=== PATIENT | male | born 2000 | race Caucasian/White ===

== ENCOUNTER 2021-01-23 14:11 | Day surgery (SDC) | payer OTHER ==
[2021-01-23] MEDS ORDERED: HYDROmorphone 1 MG/ML CARPUJECT IVP STA (14:35)
[2021-01-23] MEDS ORDERED: ONDANSETRON 4 MG/2 ML VIAL IVP STA (14:35)
[2021-01-23] MEDS ORDERED: SODIUM CHLORIDE 0.9% 1,000 ML IV STA (14:35)
[2021-01-23 14:45] LABS: BASOPHILS # (AUTO) 0.1 10^3/uL (0.0-0.1); BASOPHILS % (AUTO) 0.8 %; EOSINOPHILS # (AUTO) 0.7 10^3/uL (0.0-0.7); EOSINOPHILS % (AUTO) 7.9 %; HCT - HEMATOCRIT 41.3 % (42.0-52.0); HGB - HEMOGLOBIN 14.7 g/dL (14.0-18.0); LYMPHOCYTES # (AUTO) 2.1 10^3/uL (1.5-3.5); LYMPHOCYTES % (AUTO) 24.3 %; MEAN CORPUSCULAR HEMOGLOBIN 29.8 pg (27.0-31.0); MEAN CORPUSCULAR HGB CONC 35.6 g/dL (32.0-36.0); MEAN CORPUSCULAR VOLUME 83.6 fL (80.0-94.0); MEAN PLATELET VOLUME 9.5 fL (7.4-11.4); MONOCYTES # (AUTO) 0.7 10^3/uL (0.0-1.0); MONOCYTES % (AUTO) 8.3 %; NEUTROPHILS % (AUTO) 58.6 %; PLT - PLATELET COUNT 346 10^3/uL (130-450); RED BLOOD COUNT 4.94 10^6/uL (4.70-6.10); RED CELL DISTRIBUTION WIDTH 11.9 % (12.0-15.0); WHITE BLOOD COUNT 8.5 x10^3/uL (4.8-10.8)
--- NOTE | 2021-01-23 14:50 | ED Physician Documentation ---
History of Present Illness - Stated complaint Stated Complaint: ABD PX/CP - Chief complaint Chief Complaint: Abd Pain - Additonal information Additional information: 21-year-old male presents emergency department for evaluation of periumbilical pain that radiated to the right lower quadrant. Symptoms began yesterday afternoon. Positive nausea no vomiting. No fevers. No dysuria urgency or frequency. No diarrhea. No pertinent past surgical history. Review of Systems Constitutional: reports: Chills, Myalgias. denies: Fever Eyes: reports: Reviewed and negative Ears: reports: Reviewed and negative Nose: reports: Reviewed and negative Throat: reports: Reviewed and negative Cardiac: reports: Reviewed and negative Respiratory: reports: Reviewed and negative GI: reports: Abdominal Pain, Nausea. denies: Vomiting, Constipation, Diarrhea, Hematemesis : reports: Reviewed and negative Skin: reports: Reviewed and negative PD PAST MEDICAL HISTORY - Allergies Allergies/Adverse Reactions: Allergies Allergy/AdvReac Type Severity Reaction Status Date / Time No Known Drug Allergies Allergy Verified 01/23/21 14:28 PD ED PE EXPANDED - General General: Alert, In Pain - Cardiac Cardiac: Regular Rate, Radial strong equal. No: Murmur Present - Respiratory Respiratory: Clear to ausultation rachel. No: Distress, Labored - Abdomen Abdomen: Normal Bowel sounds, RLQ (Tenderness with guarding and rebound right lower quadrant. Percussion tenderness present. Equivocal McBurney's.) Results - Vitals Vitals: Vital Signs - 24 hr 01/23/21 14:23 Temperature 36.5 C Heart Rate 103 H Respiratory 15 Rate Blood Pressure 145/84 H O2 Saturation 99 Oxygen O2 Source Room air - Labs Labs: Laboratory Tests 01/23/21 01/23/21 01/23/21 14:40 14:40 16:17 WBC 8.5 RBC 4.94 Hgb 14.7 Hct 41.3 L MCV 83.6 MCH 29.8 MCHC 35.6 RDW 11.9 L Plt Count 346 MPV 9.5 Neut # (Auto) 5.0 Lymph # (Auto) 2.1 [place] # (Auto) 0.7 Eos # (Auto) 0.7 Baso # (Auto) 0.1 Absolute Nucleated RBC 0.00 Nucleated RBC % 0.0 Sodium 135 Potassium 3.9 Chloride 100 L Carbon Dioxide 27 Anion Gap 8.0 BUN 15 Creatinine 0.9 Estimated GFR (MDRD) 105 Glucose 110 H Calcium 9.5 Total Bilirubin 0.6 AST 20 ALT 29 Alkaline Phosphatase 91 Total Protein 7.9 Albumin 4.6 Globulin 3.3 Albumin/Globulin Ratio 1.4 Lipase 23 Urine Color YELLOW Urine Clarity CLEAR Urine pH 7.[address] <=1.005 Urine Protein NEGATIVE Urine Glucose (UA) NEGATIVE Urine Ketones NEGATIVE Urine Occult Blood NEGATIVE Urine Nitrite NEGATIVE Urine Bilirubin NEGATIVE Urine Urobilinogen 0.2 (NORMAL) Ur Leukocyte Esterase NEGATIVE Ur Microscopic Review NOT INDICATED Urine Culture Comments NOT INDICATED - Rads (name of study) CT abd Radiology: Final report received (Acute appendicitis without abscess or rupture.) PD MEDICAL DECISION MAKING - ED course Complexity details: reviewed results, re-evaluated patient, d/w patient ED course: 18-year-old male presents emergency department for 2 days of right lower quadrant abdominal pain. History and exam highly suspicious for acute appendicitis though his screening labs are essentially unremarkable. CT did show acute appendicitis without acute fracture or abscess. I discussed The case with Dr. Oliveira who will take the patient to the OR emergently. 3 g of Unasyn has been ordered. Plan and findings discussed with patient and he is in agreement. Patient has remained clinically stable while here in the emergency department. Further care to be dictated by the surgical team. Departure - Departure Disposition: ED Transfer to [facility]
[2021-01-23] MEDS ORDERED: IOVERSOL 320 100 ML VIAL IVP ONE ×2 (14:55→16:12)
[2021-01-23 14:59] LABS: ALBUMIN 4.6 g/dL (3.2-5.5); ALBUMIN/GLOBULIN RATIO 1.4 (1.0-2.2); BILIRUBIN,TOTAL 0.6 mg/dL (0.2-1.0); CALCIUM 9.5 mg/dL (8.5-10.3); CREATININE 0.9 mg/dL (0.6-1.2); POTASSIUM 3.9 mmol/L (3.5-5.0); TOTAL PROTEIN 7.9 g/dL (6.7-8.2)
[2021-01-23 16:29] LABS: BILIRUBIN,URINE NEGATIVE (NEGATIVE); GLUCOSE, URINE (UA) NEGATIVE (NEGATIVE); KETONES,URINE (UA) NEGATIVE (NEGATIVE); LEUKOCYTE ESTERASE, URINE NEGATIVE (NEGATIVE); NITRITE,URINE NEGATIVE (NEGATIVE); OCCULT BLOOD,URINE NEGATIVE (NEGATIVE); PROTEIN,URINE NEGATIVE (NEGATIVE); UROBILINOGEN,URINE 0.2 (NORMAL) E.U./dL (NORMAL)
[2021-01-23 16:30] LABS: CLARITY,URINE CLEAR (CLEAR)
[2021-01-23] MEDS ORDERED: AMPICILLIN/SULBACTAM 3 GM in SODIUM CHLORIDE 0.9% MINIBAG 100 ML IV STA (16:40)
--- NOTE | 2021-01-23 16:42 | CT Report ---
PROCEDURE: Abdomen/Pelvis W INDICATIONS: RLQ pain CONTRAST: IV CONTRAST: Optiray 320 ml: 100 PO CONTRAST: *NO PO CONTRAST TECHNIQUE: After the administration of intravenous contrast, 5 mm thick sections acquired from the diaphragms to the symphysis. 5 mm thick coronal and sagittal reformats were acquired. For radiation dose reducti on, the following was used: automated exposure control, adjustment of mA and/or kV according to lucia ent size. COMPARISON: None. FINDINGS: Image quality: Excellent. ABDOMEN: Lung bases: Lung bases are clear. Heart size is normal. Solid organs: Liver and spleen are normal in size and enhancement. Gallbladder is normal Biliary s ystem is non dilated. Pancreas enhances normally. No adrenal nodules. Kidneys demonstrate normal s ize and enhancement, without hydronephrosis. Peritoneum and bowel: Bowel loops demonstrate normal wall thickness and caliber. No free fluid or a ir. The appendix is enlarged 1.6 cm. Mild inflammatory changes and trace free fluid noted adjacent to the appendix. No appendicolith or evidence of appendiceal rupture. Nodes and vessels: No retroperitoneal or mesenteric adenopathy by size criteria. Aorta and inferior vena cava are normal in size. Miscellaneous: No ventral hernias. PELVIS: Genitourinary: Bladder wall thickness is normal. Miscellaneous: No inguinal hernias or adenopathy. Bones: No suspicious bony lesions. No vertebral body compression fractures. IMPRESSION: Acute appendicitis. No evidence of appendiceal rupture or periappendiceal abscess. Findings discussed with Karla Peñaloza, nurse practitioner on 01/23/2021 at 1639 hours. Reviewed by: Amelie Canada MD, PhD on 01/23/2021 4:40 PM PDT Approved by: Amelie Canada MD, PhD on 01/23/2021 4:40 PM PDT Station ID: [id number]
--- NOTE | 2021-01-23 17:22 | HISTORY & PHYSICAL EXAMINATION ---
HPI - Admitted From Admitted from: ED - History Obtained From History obtained from: Patient Exam limitations: No limitations - History of Present Illness Pain/Problem Location Description: Right lower quadrant Severity at the worst: reports: Moderate Pain Quality: reports: Dull, Aching Context-Pain started w/: reports: Rest Timing: reports: Gradual onset Duration: reports: Days: (1) Improved with: reports: Nothing Worsened by: reports: Movement, Palpation Associated symptoms: reports: Nausea. denies: Shortness of air, Diaphoresis, Vomiting HPI Comment/Other: Pleasant 21-year-old [employer] presents with 24 hours of abdominal pain that began in the periumbilical region and localized to the right lower quadrant he has had associated nausea but no vomiting no prior history of similar pain no diarrhea and no fever prior to presenting to the emergency department. 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: positive: None : positive: None HEENT: positive: None Psych: positive: None Musculoskeletal: positive: None Derm: positive: None MRSA Hx?: No Social & Family Hx - Living Situation Living Arrangement: Other ([place] [employer] [place] - Social History Does the pt smoke?: No Does the pt drink ETOH?: Yes Meds/Allgy - Allergies Allergies/Adverse Reactions: Allergies Allergy/AdvReac Type Severity Reaction Status Date / Time No Known Drug Allergies Allergy Verified 01/23/21 14:28 Review of Systems - Constitutional Constitutional: denies: Fever, Chills - Cardiovascular Cariovascular: denies: Lightheadedness - Gastrointestinal Gastrointestinal: reports: Abdominal pain, Nausea. denies: Black stools, Bloody stools, Vomiting - Genitourinary Genitourinary: denies: Dysuria, Frequency - All Other Systems All Other Systems: reports: Reviewed and negative Exam - Vital Signs Reviewed Vital Signs: Yes Vital Signs: Vital Signs x48h Temp Pulse Resp BP Pulse Ox 01/23/21 14:23 36.5 C 103 H 15 145/84 H 99 - Physical Exam General Appearance: positive: No acute distress, Alert Eyes Bilateral: positive: Normal inspection, PERRL, EOMI ENT: positive: ENT inspection nml, Pharynx nml, No signs of dehydration Neck: positive: Nml inspection, Thyroid nml, No JVD, Trachea midline Respiratory: positive: Chest non-tender, No respiratory distress, Breath sounds nml Cardiovascular: positive: Regular rate & rhythm Peripheral Pulses: positive: 2+ Abdomen: positive: Nml bowel sounds, Tenderness, Guarding, Rebound Back: positive: Nml inspection Skin: positive: Color nml Extremities: positive: Non-tender Neurologic/Psychiatric: positive: Oriented x3 Results - Lab Results Fish Bones: 01/23/21 14:40 01/23/21 14:40 Other Lab Results: Lab Results x24hrs 01/23/21 01/23/21 01/23/21 Range/Units 16:17 14:40 14:40 WBC 8.5 (4.8-10.8) x10^3/uL RBC 4.94 (4.70-6.10) 10^6/uL Hgb 14.7 (14.0-18.0) g/dL Hct 41.3 L (42.0-52.0) % MCV 83.6 (80.0-94.0) fL MCH 29.8 (27.0-31.0) pg MCHC 35.6 (32.0-36.0) g/dL RDW 11.9 L (12.0-15.0) % Plt Count 346 (130-450) 10^3/uL MPV 9.5 (7.4-11.4) fL Neut # (Auto) 5.0 (1.5-6.6) 10^3/uL Lymph # (Auto) 2.1 (1.5-3.5) 10^3/uL [place] # (Auto) 0.7 (0.0-1.0) 10^3/uL Eos # (Auto) 0.7 (0.0-0.7) 10^3/uL Baso # (Auto) 0.1 (0.0-0.1) 10^3/uL Absolute Nucleated RBC 0.00 x10^3/uL Nucleated RBC % 0.0 /100WBC Sodium 135 (135-145) mmol/L Potassium 3.9 (3.5-5.0) mmol/L Chloride 100 L (101-111) mmol/L Carbon Dioxide 27 (21-32) mmol/L Anion Gap 8.0 (6-13) BUN 15 (6-20) mg/dL Creatinine 0.9 (0.6-1.2) mg/dL Estimated GFR (MDRD) 105 (>89) Glucose 110 H (70-100) mg/dL Calcium 9.5 (8.5-10.3) mg/dL Total Bilirubin 0.6 (0.2-1.0) mg/dL AST 20 (10-42) IU/L ALT 29 (10-60) IU/L Alkaline Phosphatase 91 (42-121) IU/L Total Protein 7.9 (6.7-8.2) g/dL Albumin 4.6 (3.2-5.5) g/dL Globulin 3.3 (2.1-4.2) g/dL Albumin/Globulin Ratio 1.4 (1.0-2.2) Lipase 23 (22-51) U/L Urine Color YELLOW Urine Clarity CLEAR (CLEAR) Urine pH 7.0 (5.0-7.5) PH Ur Specific [place] <=1.005 (1.002-1.030) Urine Protein NEGATIVE (NEGATIVE) mg/dL Urine Glucose (UA) NEGATIVE (NEGATIVE) mg/dL Urine Ketones NEGATIVE (NEGATIVE) mg/dL Urine Occult Blood NEGATIVE (NEGATIVE) Urine Nitrite NEGATIVE (NEGATIVE) Urine Bilirubin NEGATIVE (NEGATIVE) Urine Urobilinogen 0.2 (NORMAL) (NORMAL) E.U./dL Ur Leukocyte Esterase NEGATIVE (NEGATIVE) Ur Microscopic Review NOT INDICATED Urine Culture Comments NOT INDICATED - Diagnostic Imaging Results Diagnostic Imaging Results: positive: Prelim report reviewed Diagnostic Imaging Results Comments: CT scan with evidence of acute appendicitis without rupture. No other abnormalities appreciated - EKG Results EKG Interpreted Independently: No Impression/Plan - Problem List Problem List: Acute appendicitis in the setting of a healthy 21-year-old gentleman who was in the [place] he is already received 3 g of Unasyn in the emergency room I recommended that we proceed to the operating room for laparoscopic appendectomy I will keep him overnight as he does live in the [facility] and we want to be sure his pain is well controlled and nausea has resolved.We discussed the risks and benefits of the operation and the patient is expressed both verbal and written consent to proceed
--- NOTE | 2021-01-23 17:25 | ANESTHESIA ---
Pre-Anesthesia VS, & Labs - Diagnosis appendicitis - Procedure lap appy Vital Signs: Temp Pulse Resp BP Pulse Ox 36.5 C 103 H 15 145/84 H 99 01/23/21 14:23 01/23/21 14:23 01/23/21 14:23 01/23/21 14:23 01/23/21 14:23 Height: 5 ft 9 in Weight (kg): 94 kg Body Mass Index: 30.6 BMI Classification: Obese - NPO Last Food Intake: 1240--ate a burger - Lab Results Current Lab Results: Laboratory Tests 01/23/21 14:40: Sodium 135, Potassium 3.9, Chloride 100 L, Carbon Dioxide 27, Anion Gap 8.0, BUN 15, Creatinine 0.9, Estimated GFR (MDRD) 105, Glucose 110 H, Calcium 9.5, Total Bilirubin 0.6, AST 20, ALT 29, Alkaline Phosphatase 91, Total Protein 7.9, Albumin 4.6, Globulin 3.3, Albumin/Globulin Ratio 1.4, Lipase 23 01/23/21 14:40: WBC 8.5, RBC 4.94, Hgb 14.7, Hct 41.3 L, MCV 83.6, MCH 29.8, MCHC 35.6, RDW 11.9 L, Plt Count 346, MPV 9.5, Neut # (Auto) 5.0, Lymph # (Auto) 2.1, [place] # (Auto) 0.7, Eos # (Auto) 0.7, Baso # (Auto) 0.1, Absolute Nucleated RBC 0.00, Nucleated RBC % 0.0 Lab results reviewed: Yes Fish Bones: 01/23/21 14:40 01/23/21 14:40 Home Medications and Allergies Ibuprofen PRN Allergies/Adverse Reactions: Allergies Allergy/AdvReac Type Severity Reaction Status Date / Time No Known Drug Allergies Allergy Verified 01/23/21 14:28 Anes History & Medical History - Anesthetic History Family history of Anesthesia Complications: Denies Family history of Malignant Hyperthermia: Denies - Medical History Cardiovascular: reports: None Pulmonary: reports: None Gastrointestinal: reports: None Urinary: reports: None Neuro: reports: None Musculoskeletal: reports: None Endocrine/Autoimmune: reports: None Blood Disorders: reports: None Skin: reports: None Smoking Status: Current every day smoker (vapes) Psychosocial: reports: Alcohol (1-2x/ month) History of Cancer?: Yes Exam General: Alert, Oriented x3, Cooperative, No acute distress Dental: Other (chipped front, otherwise normal) Mouth Openin Fingerbreadth Neck Mobility: Normal Mallampati classification: I Thyromental Distance: 4-6 cm Mental/Cognitive Status: Alert/Oriented X3, Normal for patient Plan Anesthesia Type: General (with RSI) Consent for Procedure(s) Verified and Reviewed: Yes Code Status: Attempt Resuscitation ASA classification: 2-Mild systemic disease Is this case an emergency?: Yes
[2021-01-23] MEDS ORDERED: SUCCINYLCHOLINE 200 MG/10 ML VIAL ONE (17:35)
[2021-01-23] MEDS ORDERED: LIDOCAINE-MPF 2% 5 ML VIAL ONE (17:36)
[2021-01-23] MEDS ORDERED: PROPOFOL 200 MG/20 ML VIAL IVP ONE (17:36)
[2021-01-23] MEDS ORDERED: ROCURONIUM 50 MG/5 ML VIAL ONE (17:36)
[2021-01-23] MEDS ORDERED: fentaNYL 100 MCG/2 ML VIAL ONE (17:39)
[2021-01-23] MEDS ORDERED: MIDAZOLAM 2 MG/2 ML VIAL ONE (17:39)
[2021-01-23] MEDS ORDERED: LIDOCAINE 2%-EPI 1:100000 20 ML MDV ONE (18:12)
[2021-01-23] MEDS ORDERED: BUPIVACAINE 0.5% PF 30 ML VIAL ONE (18:12)
[2021-01-23] MEDS ORDERED: ONDANSETRON 4 MG/2 ML VIAL ONE (18:15)
[2021-01-23] MEDS ORDERED: DEXAMETHASONE 4 MG/ML VIAL ONE (18:15)
[2021-01-23] MEDS ORDERED: LIDOCAINE 2%-EPI 1:100000 20 ML MDV SUBQ ONE (18:18)
[2021-01-23] MEDS ORDERED: BUPIVACAINE 0.5% PF 30 ML VIAL INFIL ONE (18:19)
[2021-01-23] MEDS ORDERED: SUGAMMADEX 200 MG/2 ML VIAL IVP ONE (18:43)
[2021-01-23] MEDS ORDERED: KETOROLAC 30 MG/ML VIAL ONE (18:47)
--- NOTE | 2021-01-23 18:49 | OPERATIVE REPORT ---
Operative Report - General Procedure Date: 01/23/21 Planned Procedure: Laparoscopy with appendectomy and indicated procedures Pre-Op Diagnosis: Acute appendicitis without evidence of perforation Procedure Performed: Laparoscopic appendectomy Post Op Diagnosis: Acute nonperforated appendicitis - Procedure Note Primary Surgeon: Tee Anesthesia Provider: AGUSTIN Rodgers Anesthesia Technique: General ET tube, Local Pathology: Appendix in formalin to pathology Estimated Blood Loss (mL): 10 Indications: Acute appendicitis suspected on physical exam and confirmed with CT Findings: Acute appendicitis without evidence of perforation Complications: None apparent - Other Other Information/Narrative: After obtaining informed consent, the patient is brought to the operating room and placed in the supine position on the operating table. Following successful induction of general endotracheal anesthesia, appropriate padding of all bony prominences, and placement of appropriate monitors, the abdomen was prepped and draped in the standard surgical fashion. A timeout was held per scope protocol. All elements of the surgical safety checklist were followed before, during, and after the procedure. Following infiltration with local anesthetic to create a field block, an incision was created inferior to the umbilicus and carried down through the skin and subcutaneous tissue to reveal the fascia below. 2-0 Vicryl retention sutures were placed on either side of the midline and the abdomen was entered under direct vision using a 15 blade scalpel. A 10 mm blunt Fisher balloon trocar was placed in the abdominal cavity and it was insufflated to 15 mmHg pressure. The patient was placed in Trendelenburg position with the left side rotated toward the floor. The camera was placed in the abdominal cavity and we immediately visualized the cecum in the right lower quadrant. It was rotated medially to reveal a somewhat dilated and turgid appendix. The appendix was grasped and elevated revealing its attachment to the cecum. A window was created in the mesoappendix at this location. A laparoscopic stapling device was used to ligate the appendix and liberated from its attachment to the cecum. An additional load of the device were used to divide its mesentery.The appendix was placed in an Endo Catch bag and removed via the umbilical port with a camera in the epigastric position. The camera was replaced in the operative site examined. It was irrigated with warm saline solution and aspirated free of all fluid and particulate matter. The table was flattened and the abdomen evaluated once again. The trochars were removed under direct vision and abdomen was desufflated. The umbilical incision was closed with interrupted Vicryl suture and Monocryl stitches were placed in the skin. All sponge, needles, and instrument counts were correct at the conclusion of the case. The patient was allowed to wake from anesthesia without difficulty and taken to the postanesthesia care unit in good condition.
[2021-01-23] MEDS ORDERED: SODIUM CHLORIDE FLUSH 0.9% 10 ML SYRINGE IVP PRN (18:50)
[2021-01-23] MEDS ORDERED: ACETAMINOPHEN 325 MG TABLET PO PRN (18:52)
[2021-01-23] MEDS ORDERED: IBUPROFEN 600 MG TABLET PO PRN (18:52)
[2021-01-23] MEDS ORDERED: ONDANSETRON 4 MG/2 ML VIAL IVP PRN ×2 (18:52→18:59)
[2021-01-23] MEDS ORDERED: fentaNYL 100 MCG/2 ML VIAL IVP PRN (18:59)
[2021-01-23] MEDS ORDERED: ATROPINE ABBOJECT 1 MG/10 ML SYRINGE IVP PRN (18:59)
[2021-01-23] MEDS ORDERED: MORPHINE 2 MG/ML CARPUJECT IVP PRN (18:59)
[2021-01-23] MEDS ORDERED: LACTATED RINGERS 1,000 ML IV ONE (18:59)
[2021-01-23] MEDS ORDERED: NALOXONE 0.4 MG/ML VIAL IVP PRN (18:59)
[2021-01-23] MEDS ORDERED: HYDROmorphone 0.5 MG/0.5 ML SYRINGE IVP PRN (18:59)
[2021-01-23] MEDS ORDERED: LACTATED RINGERS 1,000 ML IV SCH (19:00)
--- NOTE | 2021-01-23 19:12 | ANESTHESIA POST OP EVALUATION ---
Anesthesia Post Eval - Post Anesthesia Eval Vitals: Last Vital Signs Temp 37 C 01/23/21 18:55 Pulse 79 01/23/21 19:05 Resp 18 01/23/21 19:05 BP 137/77 H 01/23/21 19:05 Pulse Ox 94 01/23/21 19:05 CV Function Including HR & BP: Stable Pain Control: Satisfactory Nausea & Vomiting: Negative Mental Status: Patient Participates Respiratory Status: Airway Patent Hydration Status: Satisfactory Anesthesia Complications: None
[2021-01-23] MEDS ORDERED: HYDROmorphone 0.5 MG/0.5 ML SYRINGE ONE (19:20)
[2021-01-23] MEDS ORDERED: ACETAMINOPHEN 1,000 MG/100 ML 100 ML IV ONE ×2 (19:20→19:21)
[2021-01-23] MEDS: oxyCODONE 5 MG TABLET PO PRN (19:53)
[2021-01-23] MEDS: SODIUM CHLORIDE 0.9% 1,000 ML IV SCH (20:02)
[2021-01-23] MEDS: HYDROmorphone 1 MG/ML CARPUJECT IVP PRN (21:25)
[2021-01-24] MEDS: HYDROmorphone 1 MG/ML CARPUJECT IVP PRN (01:22)
[2021-01-24] MEDS: SODIUM CHLORIDE FLUSH 0.9% 10 ML SYRINGE IVP SCH ×2 (01:23→08:20)
[2021-01-24] MEDS: oxyCODONE 5 MG TABLET PO PRN ×2 (03:00→06:51)
[2021-01-24] MEDS: SODIUM CHLORIDE 0.9% 1,000 ML IV SCH (05:19)
[2021-01-24] MEDS ORDERED: PANTOPRAZOLE 40 MG TABLET PO SCH (07:00)
[2021-01-24 08:13] VITALS: BP 142/77
[2021-01-24] MEDS ORDERED: ENOXAPARIN 40 MG/0.4 ML SYRINGE SUBQ SCH (09:00)
[2021-01-24] MEDS ORDERED: IBUPROFEN 600 MG TABLET PO PRN (09:13)
[2021-01-24] MEDS ORDERED: oxyCODONE 5 MG TABLET PO PRN (09:13)
[2021-01-24] MEDS ORDERED: ONDANSETRON 4 MG/2 ML VIAL IVP PRN (09:13)
[2021-01-24] MEDS ORDERED: ACETAMINOPHEN 325 MG TABLET PO PRN (09:13)
== END 2021-01-24 09:45 | disposition home or self-care (01) ==
LOC: ED 14:11 → SDS 16:59 → MS2 19:31 → SDS 01-24 09:45
PROVIDERS: ATTEND Surgery
PROC: 0DTJ4ZZ Resection of Appendix, Percutaneous Endoscopic Approach (ICD-10-PCS; principal; 2021-01-23 17:00)
DX: K35.80 Unspecified acute appendicitis (principal); E66.9 Obesity, unspecified; Z68.30 Body mass index [BMI] 30.0-30.9, adult; F17.290 Nicotine dependence, other tobacco product, uncomplicated
CPT/HCPCS: 36415; 44970; 74177; 80053; 81003; 83690; 85025; 96374; 96375; 99283; 99285; A9270; J0131; J0330; J1170; J1650; J7120; Q9967; 81001; 87086; 88304

== ENCOUNTER 2021-03-08 08:10 | Emergency (ER) | payer OTHER ==
[2021-03-08 08:32] VITALS: BP 123/80
--- NOTE | 2021-03-08 09:03 | ED Physician Documentation ---
History of Present Illness - Stated complaint Stated Complaint: ABD PX - Chief complaint Chief Complaint: Abd Pain - History obtained from History obtained from: Patient - History of Present Illness Timing: Today - Additonal information Additional information: 21-year-old male who had his appendix out at the beginning of January has had a issue with infection in the umbilical incision. He has had an abscess has been drained he has packing in place now and he is on antibiotic. He had the packing placed about 4 days ago and today was in the shower he had an occlusive Band-Aid over the top of it the water got underneath the Band-Aid and he experienced some pain in his abdomen at the site of the abscess. He was instructed by the nurse come to the emergency department for evaluation. He has been seeing a nurse at Dr. Oliveira's office with the packing. Review of Systems Constitutional: denies: Fever Cardiac: denies: Chest pain / pressure Respiratory: denies: Dyspnea, Cough GI: reports: Abdominal Pain. denies: Nausea, Vomiting, Diarrhea : denies: Dysuria, Frequency PD PAST MEDICAL HISTORY - Past Medical History Past Medical History: Yes Cardiovascular: None Respiratory: None Neuro: Head injury Endocrine/Autoimmune: None GI: None CAD ADMINISTRATOR: None : None HEENT: None Psych: None Musculoskeletal: None Derm: None - Past Surgical History Past Surgical History: Yes General: Appendectomy - Present Medications Home Medications: Ambulatory Orders Medication Instructions Recorded Confirmed Cephalexin [Keflex] 750 mg PO TID 03/08/21 03/08/21 - Allergies Allergies/Adverse Reactions: Allergies Allergy/AdvReac Type Severity Reaction Status Date / Time No Known Drug Allergies Allergy Verified 03/08/21 08:15 - Social History Does the pt smoke?: No Smoking Status: Never smoker Does the pt drink ETOH?: Yes Does the pt have substance abuse?: No - Immunizations Immunizations are current?: Yes PD ED PE NORMAL - Vitals Vital signs reviewed: Yes (hypertensvie ) - General General: Alert and oriented X 3, No acute distress, Well developed/nourished - HEENT HEENT: Atraumatic, PERRL, EOMI - Respiratory Respiratory: No respiratory distress - Abdomen Abdomen: Soft, Non tender, Non distended, No organomegaly, Other (There is packing from the umbilical incision and this is removed with a foul oder. The area does not appear inflamed at all. Mild tenderness minimal drainage on the packing. ) - Derm Derm: Normal color, Warm and dry, No rash - Extremities Extremities: No deformity, No edema - Neuro Neuro: vaccine manager 2-12 intact, No motor deficit, No sensory deficit, Normal speech Eye Opening: Spontaneous Motor: Obeys Commands Verbal: Oriented GCS Score: 15 - Psych Psych: Normal mood, Normal affect Results - Vitals Vitals: Vital Signs - 24 hr 03/08/21 03/08/21 08:17 08:31 Temperature 36.4 C L Heart Rate 86 62 Respiratory 16 16 Rate Blood Pressure 126/94 H 123/80 O2 Saturation 98 97 Oxygen O2 Source Room air PD MEDICAL DECISION MAKING - ED course Complexity details: considered differential, d/w patient ED course: 21-year-old male with an umbilical incision abscess has experienced a mild pain is packing is removed and replaced without incident the packing was foul-smellin g there is no significant drainage from the area no significant inflammation around the area. Dressing was replaced and the patient has follow-up in 2 days time Departure - Departure Disposition: 01 Home, Self Care Clinical Impression: Incisional abscess Condition: Stable Instructions: ED Abscess IandD Follow-Up: EVE BARROW DO [Primary Care Provider] - Veronique Oliveira MD [Provider Admit Priv/Credential] - Comments: Today it appears the abscess to your incision is improving and we have changed the packing. Have the packing removed in your surgeon's office on follow-up.
== END 2021-03-08 10:01 | disposition home or self-care (01) ==
LOC: ED 08:10
DX: T81.49XA Infection following a procedure, other surgical site, initial encounter (principal); L02.216 Cutaneous abscess of umbilicus; Y83.8 Other surgical procedures as the cause of abnormal reaction of the patient, or of later complication, without mention of misadventure at the time of the procedure
CPT/HCPCS: 99282

== ENCOUNTER 2021-09-09 07:48 | Outpatient (CLI) | payer OTHER ==
--- NOTE | 2021-09-09 08:50 | MRI Report ---
PROCEDURE: Brain W/O INDICATIONS: SYNCOPE TECHNIQUE: Noncontrast axial T1 spin echo, axial T2 fast spin echo, sagittal and axial FLAIR, coronal T2 fast sp in echo, axial gradient echo, axial diffusion and ADC through the brain. COMPARISON: None. FINDINGS: Image quality: Diagnostic. CSF Spaces: Basal cisterns are patent. No extra-axial fluid collections. Ventricles are normal in size and shape. Brain: No intracranial hemorrhage, mass, or mass effect. Gutierrez/white matter interface is preserved. Brainstem appears normal. Diffusion-weighted images demonstrate no acute infarcts. There is mild non specific periventricular T2 hyperintensity along the posterior horn of the right lateral ventricle. N ormal intravascular flow voids are present. Skull and face: Calvarium has normal marrow signal. Orbits appear normal. Sinuses: Mild mucosal thickening demonstrated within the ethmoid sinuses, right greater than left. Th ere is a sinus retention cyst or mucosal polyp partially visualized within the inferior right maxilla ry sinus measuring up to 1.5 cm. Mastoid air cells are clear. IMPRESSION: 1. No evidence of infarct, hemorrhage, or mass effect. 2. Small linear region of periventricular white matter T2 hyperintensity along the right lateral vent ricle is nonspecific and of uncertain clinical significance. The differential is broad and includes s equelae of infectious or inflammatory processes such as vasculitis or demyelinating disease among oth er etiologies. Reviewed by: Librado Noe MD on 09/09/2021 8:48 AM PST Approved by: Librado Noe MD on 09/09/2021 8:48 AM PST Station ID: [id number]
== END 2021-09-09 07:49 | disposition home or self-care (01) ==
LOC: DI 07:48
DX: R55 Syncope and collapse (principal)

== ENCOUNTER 2021-09-26 17:05 | Emergency (ER) | payer OTHER ==
[2021-09-26 17:15] VITALS: BP 144/86
--- NOTE | 2021-09-26 17:43 | ED Physician Documentation ---
PD HPI OPHTHO - Stated complaint Stated Complaint: LT EYE BLURRY/ARTIS SPOT - Chief complaint Chief Complaint: Heent - History obtained from History obtained from: Patient - Additional information Additional information: 21yo male comes in with left eye pain and blurry vision x 1 week. "Burning" pain. Constant. Eyes feel dry and sensitive. Seen at [facility], given eye drops without relief. Given rx today for augmentin and eythromycin, not yest started. Not a contact lens wearer. Had a stye a few weeks before this starting in same eye. Review of Systems Constitutional: denies: Fever, Chills Eyes: reports: Loss of vision, Decreased vision, Photophobia, Discharge, Irritation Ears: denies: Loss of hearing, Ear pain PD PAST MEDICAL HISTORY - Past Medical History Cardiovascular: None Respiratory: None Neuro: Head injury Endocrine/Autoimmune: None GI: None HEALTH SCREENER: None : None HEENT: None Psych: None Musculoskeletal: None Derm: None - Past Surgical History Past Surgical History: Yes General: Appendectomy - Present Medications Home Medications: Ambulatory Orders Medication Instructions Recorded Confirmed cephALEXin [Keflex] 750 mg PO TID 03/08/21 03/08/21 levoFLOXacin 0.5% OPHTH DROPS 1 drops OPTH Q2H #5 ml 09/26/21 [Quixin Ophth Drops] - Allergies Allergies/Adverse Reactions: Allergies Allergy/AdvReac Type Severity Reaction Status Date / Time No Known Drug Allergies Allergy Verified 09/26/21 17:14 - Social History Does the pt smoke?: No Smoking Status: Never smoker Does the pt drink ETOH?: Yes Does the pt have substance abuse?: No - Immunizations Immunizations are current?: Yes PD ED PE NORMAL - Vitals Vital signs reviewed: Yes - General General: Alert and oriented X 3, No acute distress - HEENT HEENT: PERRL, EOMI, Other (On the left cornea there is a small lesion with fluorescein uptake. Really too small to characterize per se. Nurses visual acuity is 20/30 in that eye.) - Neuro Neuro: Alert and oriented X 3, Normal speech - Psych Psych: Normal mood, Normal affect Results - Vitals Vitals: Vital Signs - 24 hr 09/26/21 17:07 Temperature 36.4 C L Heart Rate 78 Respiratory 16 Rate Blood Pressure 144/86 H O2 Saturation 97 Oxygen O2 Source Room air PD MEDICAL DECISION MAKING - ED course ED course: 21-year-old gentleman with a corneal lesion. It is quite small but does not seem to be responding to what ever he was given last week. He was given more prescriptions yesterday but has not started them as he wanted a second opinion. There is no ophthalmology on-call but it does not look like an acute emergency i.e. it does not look like an ulcer or dendritic per se. He was started on topical fluoroquinolone and advised to fill the oral antibiotics he was already given. Departure - Departure Disposition: Home, Self Care Clinical Impression: Benign lesion of left cornea Condition: Good Record reviewed to determine appropriate education?: Yes Instructions: ED Eye Injury Corneal Abrasion Follow-Up: Elijah Mckeon MD [Provider Admit Priv/Credential] - Prescriptions: levoFLOXacin 0.5% OPHTH DROPS [Quixin Ophth Drops] 1 drops OPTH Q2H #5 ml Comments: Not clear what the lesion represents. I would go ahead and start the oral antibiotics that the [facility] gave you, I am prescribing a stronger topical antibiotic. Return for new or worsening symptoms. Imperative to see the eye doctor soon as possible, I would just go to the [facility] Wednesday morning. I am also giving you the phone number for the local civilian car mechanic. Discharge Date/Time: 09/26/21 18:24
== END 2021-09-26 18:24 | disposition home or self-care (01) ==
LOC: ED 17:05
DX: D31.1 Benign neoplasm of cornea (principal)
CPT/HCPCS: 99282; 99283

== ENCOUNTER 2021-10-02 12:08 | Outpatient (CLI) | payer OTHER | END 2021-10-02 12:09 | disposition home or self-care (01) | LOC: LAB.R 12:08 | PROVIDERS: ATTEND Optometrist | DX: H16.002 Unspecified corneal ulcer, left eye (principal) | CPT/HCPCS: 87070 ==

== ENCOUNTER 2021-11-09 14:31 | Emergency (ER) | payer OTHER ==
[2021-11-09 14:40] VITALS: BP 157/99
--- NOTE | 2021-11-09 15:05 | XRAY Report ---
PROCEDURE: Finger(s) RT INDICATIONS: Trauma TECHNIQUE: AP hand, 2 views of the fifth finger(s) acquired. COMPARISON: None FINDINGS: Bones: There is a moderately displaced distal fifth metacarpal fracture, with mild impaction. No additional fractures or dislocations. No suspicious bony lesions. Soft tissues: No suspicious soft tissue calcifications. IMPRESSION: Distal fifth metacarpal fracture. Reviewed by: Bassam Lemos MD on 11/09/2021 2:04 PM FELISHA Approved by: Bassam Lemos MD on 11/09/2021 2:04 PM FELISHA Station ID: [id number]
--- NOTE | 2021-11-09 15:06 | ED Physician Documentation ---
PD HPI UPPER EXT INJURY - Stated complaint Stated Complaint: RIGHT HAND INJURY - Chief complaint Chief Complaint: Ext Problem - History obtained from History obtained from: Patient - History of Present Illness Location: Right, Hand Type of injury: Fall (he states he fell and right hand struck ground, knuckles contacting ground. Pain at 5th MC area.) Timing - onset: Today Timing - details: Abrupt onset, Still present Improved by: No: Rest Worsened by: Moving, Palpating Associated symptoms: Weakness (pain with moving little finger.), Swelling. No: Numbness Similar symptoms before: Has not had sx before Review of Systems Skin: denies: Abrasion (s), Laceration (s) Musculoskeletal: reports: Extremity pain (right ulnar side hand.) Neurologic: denies: Focal weakness, Numbness PD PAST MEDICAL HISTORY - Past Medical History Cardiovascular: None Respiratory: None Neuro: Head injury Endocrine/Autoimmune: None GI: None NURSE PLASTICS: None : None HEENT: None Psych: None Musculoskeletal: None Derm: None - Past Surgical History Past Surgical History: Yes General: Appendectomy - Present Medications Home Medications: Ambulatory Orders Medication Instructions Recorded Confirmed No Known Home Medications 11/09/21 11/09/21 - Allergies Allergies/Adverse Reactions: Allergies Allergy/AdvReac Type Severity Reaction Status Date / Time No Known Drug Allergies Allergy Verified 11/09/21 14:38 - Social History Does the pt smoke?: No Smoking Status: Never smoker Does the pt drink ETOH?: Yes Does the pt have substance abuse?: No - Immunizations Immunizations are current?: Yes PD ED PE NORMAL - Vitals Vital signs reviewed: Yes - General General: Alert and oriented X 3, No acute distress, Well developed/nourished - Derm Derm: Normal color, Warm and dry - Extremities Extremities: Other (right hand with focal swelling and some deformity at distal 5th MC area. NO malrotation with little finger flexion. ) - Neuro Neuro: Alert and oriented X 3, No motor deficit, No sensory deficit, Normal speech Results - Vitals Vitals: Vital Signs - 24 hr 11/09/21 14:39 Temperature 36.8 C Heart Rate 85 Respiratory 18 Rate Blood Pressure 157/99 H O2 Saturation 97 Oxygen O2 Source Room air - Rads (name of study) right hand Radiology: Prelim report reviewed (5th MC neck fracture with some volar angulation. ), See rad report Procedures - Splint (location) right ulnar gutter Splint applied by: Tech Type of splint: Fiberglass, Ulnar gutter Other: Patient tolerated well, No complications, Neurovascular intact, Sling provided Departure - Departure Disposition: 01 Home, Self Care Clinical Impression: Blus metacarpal fracture, neck, closed Qualifiers: Encounter type: initial encounter Qualified Code(s): S62.339A - Displaced fracture of neck of unspecified metacarpal bone, initial encounter for closed fracture Condition: Stable Record reviewed to determine appropriate education?: Yes Instructions: ED Fx Edmundo Follow-Up: Lauro Wilkinson MD [Provider Admit Priv/Credential] - Comments: Keep the splint on and protecting the area to help stabilize it. The swelling will go down over the next several days to week and the splint will not really fit well at that point. You will want to follow-up with either your primary care or more likely orthopedics later this coming week or early the week after for a change of the splint and further assessment. There is a some angulation of the fracture at the end of the bone but this is within tolerable range for healing well. If need be can be manipulated straighter with the next splint. Ice elevate and rest your hand often to help reduce swelling. Tylenol and/or ibuprofen as needed for pains. Minimal to no use of the right hand for 4 weeks while its healing. Forms: Activity restrictions Discharge Date/Time: 11/09/21 15:45
[2021-11-09] MEDS ORDERED: IBUPROFEN 800 MG TABLET PO STA (15:11)
[2021-11-09] MEDS ORDERED: ACETAMINOPHEN 500 MG TABLET PO STA (15:11)
== END 2021-11-09 15:45 | disposition home or self-care (01) ==
LOC: ED 14:31
DX: S62.339A Displaced fracture of neck of unspecified metacarpal bone, initial encounter for closed fracture (principal); W19.XXXA Unspecified fall, initial encounter
CPT/HCPCS: 29125; 73140; 99283; A9270

== ENCOUNTER 2022-03-25 15:32 | Outpatient (CLI) | payer OTHER ==
--- NOTE | 2022-03-25 15:20 | SLEEP CARE CONSULTATION ---
Information from patient questionnaire entered by Becca Escobar MA. I have reviewed and concur with the information entered by Becca Escobar MA. This document represents the service I personally performed and the decisions made by , Thu Anaya ARNP. History of Present Illness Service Date and Time: 03/25/2022 1420 Initial Pacific Sleepiness Scale score: 12 (02/26/2022) Current Pacific Sleepiness Scale score: 15 Additional HPI information: YANETH WILKERSON returns via video telehealth visit for follow up and results of the recently performed polysomnography. The patient was informed of the following findings: No significant sleep disordered breathing with an average AHI of 4.2 and cherie oxygen saturation of 86%. He had a minimally elevated supine AHI of 5.6. I explained the pathophysiology behind obstructive sleep apnea. Patient does not have sleep apnea and was advised how weight gain could increase the risk of developing sleep apnea in the future. I strongly encouraged the patient to lose weight. Patient does not have significant sleep disordered breathing but has elevated AHI in supine position so advised positional therapy. Methods to achieve positional management therapy were discussed; such as, positioning with pillows, wearing a T-shirt with tennis balls sewn into the back or other commercially available products. Patient has moderate to loud snoring. Snoring can be reduced by weight loss. Weight loss is best achieved with diet consult. Patient instructed to contact PCP for referral. Snoring can also be treated with an oral appliance from a dentist. Advised to check insurance coverage. In addition, an ENT evaluation can be do to see if other treatment is indicated. Patient counseled not drink alcohol less than 4 hours before bedtime as it can increase snoring and apnea. Patient was cautioned about risks of drowsy driving until sleepiness symptoms resolve. Sleep Study - Results Type of Sleep Study: Polysomnography (F/U POLY, 03/08/2022 [facility],) Prior sleep studies: No Polysomnography/Home Sleep Study results: IMPRESSION: The quality of the study is good. The patient had normal sleep efficiency. The sleep architecture was also normal. Respiratory monitoring showed no significant sleep disordered breathing (AHI = 4.2) or hypoxia (cherie oxygen saturation of 86% and only 0.5% to the total sleep time was spent with oxygen saturation below 90%). The few respiratory events occurred mainly during supine REM sleep (supine AHI = 5.6; non-supine = 1.66). Snore was moderate to loud in intensity. There was no significant periodic leg movement of sleep. Cardiac rhythm was normal sinus rhythm without significant arrhythmia. No abnormal behavior (parasomnia) observed during the night. Allergies and Home Medications Drug allergies reviewed: Yes (NKDA) Home medication list reviewed: Yes (no changes) Review of Systems Review of systems same as previous: Yes (no changes) Physical Exam Vital signs obtained and entered by: FILEMON KHAN Height: 5 ft 9 in Weight: 200 lb (pt reported) Body Mass Index: 29.5 BMI Classification: Overweight Impression and Plan Snoring but no significant sleep disordered breathing. Patient does have a minimally elevated supine AHI and should avoid supine sleep. Patient advised that often weight loss will reduce snoring as well as apnea risk. An oral appliance can also be used for snoring. This would require a dental consultation. Patient cautioned not to use other online appliances as can cause bite issues. A list of accredited dentists in [facility] and one local dentist who makes oral appliances is available in the office. Patient is advised to check if insurance will cover. An ENT consult can also be helpful to determine if any other treatment is an option. * Avoid supine sleep * Attempt to lose weight * Avoid alcohol consumption near bedtime * The patient is cautioned about driving until sleepiness is completely resolved. * Return as needed for follow up. Counseling Topics: Sleeping position, Weight loss health impact Visit Type: Telehealth Video ([phone]) Video Type: [employer] Patient Location: Home Location of Provider: Office Patient agrees and consents to this telehealth visit type: Yes Patient agrees to have their insurance billed: Yes Time Spent with Patient (minutes): 15 Provider Statement: I spent 100% of the Telehealth Video Call with the patient with greater than 50% spent counseling the patient and coordination of care.
== END 2022-03-25 15:33 | disposition home or self-care (01) ==
LOC: SC 15:32
PROVIDERS: ATTEND Nurse Practitioner Family
DX: R06.83 Snoring (principal); E66.3 Overweight; Z68.29 Body mass index [BMI] 29.0-29.9, adult

== ENCOUNTER 2022-10-31 21:44 | Emergency (ER) | payer OTHER ==
--- NOTE | 2022-10-31 22:48 | XRAY Report ---
PROCEDURE: Hand 3 View RT INDICATIONS: hand pain TECHNIQUE: 3 views of the hand(s) acquired. COMPARISON: None. FINDINGS: Bones: No fractures or dislocations. No suspicious bony lesions. Soft tissues: No suspicious soft tissue calcifications or masses. IMPRESSION: No trauma found that would indicate recent injury. There is distortion of the distal fifth metacarpal bone consistent with old healed "boxer's fracture" at that site. Reviewed by: Melvin Domingo MD on 10/31/2022 10:46 PM PDT Approved by: Melvin Domingo MD on 10/31/2022 10:46 PM PDT Station ID: [id number]
--- NOTE | 2022-10-31 22:52 | ED Physician Documentation ---
History of Present Illness - Stated complaint Stated Complaint: RT HAND PX - Chief complaint Chief Complaint: Ext Problem - History obtained from History obtained from: Patient - History of Present Illness Timing: How many weeks ago (3) Pain level max: 3 Pain level now: 1 - Additonal information Additional information: Patient is a 22-year-old male who complains of pain in the right hand, near the base of the fifth metacarpal. He states that this has been ongoing for about the past 3 weeks. Worse with palpation and movement. Better with rest. He states that he called the [facility] nurse advice line and was told to come here for evaluation. Does not recall any significant trauma. Review of Systems Constitutional: denies: Fever, Chills GI: denies: Vomiting Skin: denies: Rash Neurologic: reports: Headache (currently has a left-sided headache, similar to his usual migraine headaches. He states he receives lidocaine injections for these from his neurologist. He is on Robaxin at home, but states that is not helping. No nausea or vomiting. 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 no recent trauma). denies: Head injury, LOC PD PAST MEDICAL HISTORY - Past Medical History Cardiovascular: None Respiratory: None Neuro: Head injury Endocrine/Autoimmune: None GI: None CRIMINAL PROFILER: None : None HEENT: None Psych: None Musculoskeletal: None Derm: None - Past Surgical History Past Surgical History: Yes General: Appendectomy - Present Medications Home Medications: Ambulatory Orders Medication Instructions Recorded Confirmed Sertraline HCl 100 mg PO DAILY 10/31/22 10/31/22 Sumatriptan [Imitrex] 20 mg NS ONCE PRN #5 each 10/31/22 busPIRone [Buspar] 5 mg PO DAILY 10/31/22 10/31/22 methocarbamoL [Methocarbamol] 750 mg PO BID 10/31/22 10/31/22 - Allergies Allergies/Adverse Reactions: Allergies Allergy/AdvReac Type Severity Reaction Status Date / Time No Known Drug Allergies Allergy Verified 10/31/22 22:06 - Social History Does the pt smoke?: No Smoking Status: Never smoker Does the pt drink ETOH?: Yes Does the pt have substance abuse?: No - Immunizations Immunizations are current?: Yes PD ED PE NORMAL - Vitals Vital signs reviewed: Yes - General General: Alert and oriented X 3, No acute distress - HEENT HEENT: Atraumatic, PERRL, Moist mucous membranes - Neck Neck: Supple, no meningeal sign, No bony TTP - Cardiac Cardiac: RRR, Strong equal pulses - Respiratory Respiratory: No respiratory distress, Clear bilaterally - Derm Derm: Warm and dry - Extremities Extremities: Other (Mild tenderness to palpation over the base of the fifth metacarpal on the right hand. Neurovascular intact. No swelling. No de formity. No skin changes.) - Neuro Neuro: Alert and oriented X 3 - Psych Psych: Normal mood, Normal affect Results - Vitals Vitals: Vital Signs - 24 hr 10/31/22 22:01 Temperature 36.3 C L Heart Rate 89 Respiratory 16 Rate Blood Pressure 148/94 H O2 Saturation 99 Oxygen O2 Source Room air - Rads (name of study) Right hand x-ray Relevant Findings:: Final report received, See rad report PD Medical Decision Making - ED course Complexity details: reviewed results, re-evaluated patient, considered differential (No evidence of subarachnoid hemorrhage, tumor, intracranial hemorrhage.), d/w patient ED course: Patient received an injection of Imitrex for his headache. We will prescribe intranasal Imitrex for home. He is using the right hand freely and without difficulty. No acute findings on x-ray. We will have him follow-up with his doctor for further care. Patient counseled regarding signs and symptoms for which I believe and urgent re-evaluation would be necessary. Patient with good understanding of and agreement to plan and is comfortable going home at this time This document was made in part using voice recognition software. While efforts are made to proofread this document, sound alike and grammatical errors may occur. Departure - Departure Disposition: 01 Home, Self Care Clinical Impression: Hand pain, right Migraine Qualifiers: Migraine type: unspecified Status migrainosus presence: without status migrainosus Intractability: not intractable Qualified Code(s): G43.909 - Migraine, unspecified, not intractable, without status migrainosus Condition: Good Instructions: ED Headache Migraine Follow-Up: RENETTA WOLFE DO [Primary Care Provider] - Within 1 week Prescriptions: Sumatriptan [Imitrex] 20 mg NS ONCE PRN #5 each PRN Reason: headache Comments: Your x-ray does not show any acute abnormalities. Please follow-up with your doctor this week for further care. Please return if you worsen. This should improve with Motrin, Tylenol and rest. We will trial you on intranasal Imitrex for your migraines. You should follow-up with your neurologist and discuss possible Botox injections to see if this would last longer than the lidocaine injections. Your prescription was sent to the [facility].
[2022-10-31] MEDS ORDERED: SUMAtriptan 6 MG/0.5 ML VIAL SUBQ STA (23:01)
[2022-10-31 23:28] VITALS: BP 150/108
== END 2022-10-31 23:27 | disposition home or self-care (01) ==
LOC: ED 21:44
DX: M79.641 Pain in right hand (principal); G43.909 Migraine, unspecified, not intractable, without status migrainosus; Z79.899 Other long term (current) drug therapy
CPT/HCPCS: 96372; 99283